=== PATIENT | male | born 1995 | race Caucasian/White ===

== ENCOUNTER 2022-09-09 15:12 | Emergency (ER) | payer SELFPAY ==
[~2022-09-09] VITALS: Ht 185.4 cm; Wt 83.5 kg
[2022-09-09 15:43] VITALS: BP 136/72
[2022-09-09] MEDS ORDERED: VALTREX1000 MG PO (16:03)
== END 2022-09-09 16:18 | disposition home or self-care (01) ==
LOC: ED 15:12
DX: B02.9 Zoster without complications (principal)

== ENCOUNTER 2022-10-21 21:48 | Emergency (ER) | payer SELFPAY ==
[~2022-10-21] VITALS: Ht 167.6 cm; Wt 86.2 kg
[~2022-10-21 21:48] MED LIST: VALTREX1000 MG PO
[2022-10-21 21:51] VITALS: BP 129/80
[2022-10-22] MEDS ORDERED: VIBRAMYCIN100 MG PO (02:07)
== END 2022-10-22 02:14 | disposition home or self-care (01) ==
LOC: ED 21:48
DX: S01.01XA Laceration without foreign body of scalp, initial encounter (principal); W17.89XA Other fall from one level to another, initial encounter; Y93.89 Activity, other specified; Y92.89 Other specified places as the place of occurrence of the external cause; Y99.8 Other external cause status

== ENCOUNTER 2022-11-15 04:02 | Emergency (ER) | payer SELFPAY ==
[~2022-11-15] VITALS: Ht 185.4 cm; Wt 79.4 kg
[~2022-11-15 04:02] MED LIST changes: +VIBRAMYCIN100 MG PO
[2022-11-15 04:18] VITALS: BP 127/54
== END 2022-11-15 06:22 | disposition home or self-care (01) ==
LOC: ED 04:02
DX: S86.911A Strain of unspecified muscle(s) and tendon(s) at lower leg level, right leg, initial encounter (principal); Z48.02 Encounter for removal of sutures; W21.05XA Struck by basketball, initial encounter; Y93.67 Activity, basketball; Y92.39 Other specified sports and athletic area as the place of occurrence of the external cause; Y99.8 Other external cause status

== ENCOUNTER 2023-08-08 13:37 | Emergency (ER) | payer MEDICAID ==
[~2023-08-08] VITALS: Ht 185.4 cm; Wt 83.9 kg
[2023-08-08 14:03] VITALS: BP 121/70
[2023-08-08 14:23] LABS: BASO # 0.1 10*3/uL (0.0-0.1); BASO % 0.4 % (0.0-1.0); EOS # 0.1 10*3/uL (0.0-0.4); EOS % 0.8 % (1.0-4.0); HEMATOCRIT 45.1 % (42.0-52.0); LYMPH # 1.4 10*3/uL (1.3-4.4); LYMPH % 10.6 % (27.0-41.0); MEAN CELL VOLUME 92.4 fl (80.0-94.0); MEAN CORPUSCULAR HGB 30.3 pg (27.0-31.0); MEAN CORPUSCULAR HGB CONC 32.8 g/dl (33.0-37.0); MEAN PLATELET VOLUME 10.1 fl (9.6-12.3); MONO # 0.9 10*3/uL (0.1-1.0); MONO % 6.8 % (3.0-9.0); NEUT # 10.8 10*3/uL (2.3-7.9); PLATELET COUNT AUTOMATED 230 10*3/uL (130-400); RED BLOOD COUNT 4.88 10*6/uL (4.50-5.90); RED CELL DISTRI WIDTH 12.2 % (0-14.5); WHITE BLOOD COUNT 13.3 10*3/uL (4.8-10.8)
[2023-08-08 14:50] LABS: BUN 6 mg/dl (9-23); CHLORIDE 102 mmol/L (98-107); POTASSIUM 4.5 mmol/L (3.4-5.1)
[2023-08-08] MEDS ORDERED: LEVOTHYROXINE25 MCG PO (15:52)
== END 2023-08-08 16:05 | disposition home or self-care (01) ==
LOC: ED 13:37
PROVIDERS: Nurse Practitioner
DX: J02.9 Acute pharyngitis, unspecified (principal); Z20.822 Contact with and (suspected) exposure to COVID-19; B97.4 Respiratory syncytial virus as the cause of diseases classified elsewhere; F90.9 Attention-deficit hyperactivity disorder, unspecified type

== ENCOUNTER 2023-12-15 01:51 | Emergency (ER) | payer MEDICAID ==
[~2023-12-15] VITALS: Ht 185.4 cm; Wt 88.5 kg
[~2023-12-15 01:51] MED LIST changes: +LEVOTHYROXINE25 MCG PO
[2023-12-15 02:03] VITALS: BP 125/60
== END 2023-12-15 02:54 | disposition home or self-care (01) ==
LOC: ED 01:51
DX: B34.9 Viral infection, unspecified (principal); Z20.822 Contact with and (suspected) exposure to COVID-19; R42 Dizziness and giddiness; F90.9 Attention-deficit hyperactivity disorder, unspecified type; E03.9 Hypothyroidism, unspecified; Z87.891 Personal history of nicotine dependence

== ENCOUNTER 2024-01-09 18:25 | Emergency (ER) | payer SELFPAY ==
[~2024-01-09] VITALS: Ht 185.4 cm; Wt 88.0 kg
[2024-01-09 18:48] VITALS: BP 128/63
[2024-01-09] MEDS ORDERED: IBUPROFEN 600 MG TAB PO ONE (19:35)
[2024-01-09] MEDS ORDERED: ACETAMINOPHEN 325 MG TAB PO ONE (19:35)
== END 2024-01-09 19:50 | disposition home or self-care (01) ==
LOC: ED 18:25
DX: S86.002A Unspecified injury of left Achilles tendon, initial encounter (principal); F90.9 Attention-deficit hyperactivity disorder, unspecified type; E03.9 Hypothyroidism, unspecified; Z87.891 Personal history of nicotine dependence; X50.3XXA Overexertion from repetitive movements, initial encounter; Y93.67 Activity, basketball; Y92.310 Basketball court as the place of occurrence of the external cause; Y99.8 Other external cause status